=== PATIENT | female | born 1940 | race Caucasian/White ===

== ENCOUNTER 2016-12-15 10:33 | Outpatient (CLI) | payer MEDICARE, OTHER ==
[2015-12-11 08:12] VITALS: O2SAT 95
== END 2016-12-15 10:34 | disposition home or self-care (01) | DRG 561 ==
LOC: CONVCARE 10:33
PROVIDERS: ATTEND Orthopaedic Surgery
DX: Z47.1 Aftercare following joint replacement surgery (principal); M54.31 Sciatica, right side; Z96.653 Presence of artificial knee joint, bilateral
CPT/HCPCS: 73562

== ENCOUNTER 2017-02-26 07:45 | Day surgery (SDC) | payer MEDICARE, OTHER ==
[2017-02-26] MEDS ORDERED: LIDOCAINE HCL 2% MPF SOL ONE ×2 (08:19→08:58)
[2017-02-26] MEDS ORDERED: FENTANYL 100MCG/2ML SOL ONE (08:56)
[2017-02-26] MEDS ORDERED: MIDAZOLAM 2 MG/2 ML SOL ONE (08:56)
[2017-02-26] MEDS ORDERED: PROPOFOL 500 MG/50 ML EMU IV ONE (09:00)
[2017-02-26] MEDS: BUPIVACAINE HCL 0.5% MPF 10 ML SOL ONE ×3 (09:26→09:40)
[2017-02-26] MEDS ORDERED: BETAMETHASONE 6 MG/ML SUS IM ONE (09:26)
[2017-02-26] MEDS ORDERED: LIDOCAINE HCL 1% MPF SOL ONE (09:44)
[2017-02-26 11:18] VITALS: BP 145/55; PULSE 60; RESP 20; TEMP 97.3; O2SAT 96
== END 2017-02-26 11:55 | disposition home or self-care (01) | DRG 74 ==
LOC: SURG 07:45
PROVIDERS: ATTEND Orthopaedic Surgery
DX: G56.03 Carpal tunnel syndrome, bilateral upper limbs (principal); E11.40 Type 2 diabetes mellitus with diabetic neuropathy, unspecified
CPT/HCPCS: 82962; J0702; J2250; J3010; A6402; J2001; J2704

== ENCOUNTER 2017-12-14 11:18 | Outpatient (CLI) | payer MEDICARE, OTHER ==
[2017-02-26 11:18] VITALS: O2SAT 96
== END 2017-12-14 11:19 | disposition home or self-care (01) | DRG 561 ==
LOC: CONVCARE 11:18
PROVIDERS: ATTEND Orthopaedic Surgery
DX: Z47.1 Aftercare following joint replacement surgery (principal); Z96.653 Presence of artificial knee joint, bilateral
CPT/HCPCS: 73562

== ENCOUNTER 2019-01-05 15:52 | Observation (INO) | payer MEDICARE, BC ==
[2019-01-05] MEDS ORDERED: DEXTROSE/SALINE 0.9% 1,000 ML IV ONE (15:58)
[2019-01-05] MEDS ORDERED: SODIUM CHLORIDE 0.9% FLUSH 10 ML SOL IV PRN (16:05)
[2019-01-05 16:15] LABS: BASOPHILS % (AUTO) 1 % (0-3); EOSINOPHILS % (AUTO) 6 % (0-9); HEMATOCRIT 40 % (35-47); LYMPHOCYTES % (AUTO) 35.5 % (10-50); MEAN CORPUSCULAR HEMOGLOBIN 29.3 pg (27.0-32.0); MEAN CORPUSCULAR HGB CONC 32.4 gm/dl (32.0-36.0); MEAN CORPUSCULAR VOLUME 90 fL (81-99); MONOCYTES % (AUTO) 7.1 % (0-12); NEUTROPHILS % (AUTO) 50.6 % (37-80)
[2019-01-05 16:27] LABS: INR 1.02 (0.86-1.12)
[2019-01-05 16:37] LABS: ALBUMIN 3.6 gm/dl (3.4-5.0); ALKALINE PHOSPHATASE 78 IU/L (46-116); ALT 18 IU/L (14-63); AST 15 IU/L (15-37); BILIRUBIN,TOTAL 0.3 mg/dl (0.2-1.0); BLOOD UREA NITROGEN 24 mg/dl (7-18); CALCIUM 8.8 mg/dl (8.5-10.1); CARBON DIOXIDE 26.6 mEq/L (21-32); CHLORIDE 104 mMol/L (98-107); CREATININE 1.22 mg/dl (0.60-1.00); GLUCOSE 92 mg/dl (74-106); POTASSIUM 4.9 mMol/L (3.5-5.1); SODIUM 141 mMol/L (136-145); TOTAL PROTEIN 7.1 gm/dl (6.4-8.2); TROP I < 0.017 ng/ml (0.000-0.056)
[2019-01-05 17:51] LABS: APPEARANCE,URINE Clear; BILIRUBIN,URINE NEGATIVE (NEGATIVE); COLOR,URINE Yellow; GLUCOSE, URINE (UA) NEGATIVE (NEGATIVE); KETONES,URINE NEGATIVE (NEGATIVE); LEUKOCYTE ESTERASE ,URINE TRACE (NEGATIVE); NITRATE,URINE NEGATIVE (NEGATIVE); OCCULT BLOOD,URINE NEGATIVE (NEG-TRACE); UROBILINOGEN,URINE 0.2 (0.2-1.0 EU)
[2019-01-05] MEDS ORDERED: SODIUM CHLORIDE 0.9% 1000ML 1,000 ML IV ONE (17:53)
[2019-01-05] MEDS ORDERED: ACETAMINOPHEN 325 MG PO PRN (17:54)
[2019-01-05 18:01] LABS: BACTERIA RARE (< 1+); CRYSTALS NEGATIVE (0-3 AVE/HPF); EPITHELIAL CELLS 0-1 (SQUAMOUS); RBC,URINE NEG (0-3AV/HPF)
[2019-01-05] MEDS ORDERED: PATIENT EDUCATION 1 MISC ONE (18:46)
[2019-01-05] MEDS ORDERED: ATORVASTATIN 10 MG TAB PO SCH (21:00)
[2019-01-05] MEDS: METOPROLOL TARTRATE 50 MG TAB PO SCH (21:12)
[2019-01-05] MEDS: METFORMIN HYDROCHLORIDE 500 MG TAB PO SCH (21:26)
[2019-01-06 07:40] VITALS: BP 160/72; PULSE 72; RESP 20; TEMP 97.9; O2SAT 93
[2019-01-06] MEDS: METOPROLOL TARTRATE 50 MG TAB PO SCH (08:22)
[2019-01-06] MEDS: METFORMIN HYDROCHLORIDE 500 MG TAB PO SCH (08:22)
[2019-01-06] MEDS ORDERED: GLIMEPIRIDE 2 MG TAB PO SCH (09:00)
[2019-01-06] MEDS ORDERED: ASPIRIN EC 81 MG PO SCH (09:00)
[2019-01-06] MEDS ORDERED: OMEPRAZOLE 40 MG ECC PO SCH (09:00)
[2019-01-06] MEDS ORDERED: PANTOPRAZOLE SODIUM 40 MG ECT PO SCH (09:00)
[2019-01-06] MEDS ORDERED: INFLUENZA HIGH DOSE VACCINE 0.5 ML SUS IM ONE (10:03)
[2019-01-06] MEDS ORDERED: [UNRECOGNIZED DRUG - OTHER] ID ONE (10:51)
== END 2019-01-06 11:25 | disposition home or self-care (01) | DRG 640 ==
LOC: ED 15:52 → ACUTE CARE 17:34
PROVIDERS: ADMIT Family Medicine; ATTEND Family Medicine
DX: E16.2 Hypoglycemia, unspecified (principal); I63.9 Cerebral infarction, unspecified; R47.01 Aphasia; E11.9 Type 2 diabetes mellitus without complications; R06.00 Dyspnea, unspecified
CPT/HCPCS: 70450; 71045; 80053; 81001; 82962; 83880; 84484; 85025; 85610; 85730; 87088; 90662; 93005; 93012; 96365; 99291; A9270-GY; G0008

== ENCOUNTER 2019-01-07 13:50 | Emergency (ER) | payer MEDICARE, BC ==
[2019-01-07] MEDS ORDERED: SODIUM CHLORIDE 0.9% 1000ML 1,000 ML IV ONE (13:59)
[2019-01-07 14:05] VITALS: TEMP 97.9
[2019-01-07 14:07] LABS: BASOPHILS % (AUTO) 1 % (0-3); EOSINOPHILS % (AUTO) 3 % (0-9); HEMATOCRIT 41 % (35-47); HEMOGLOBIN 13.6 gm/dl (12.0-15.5); LYMPHOCYTES % (AUTO) 27.9 % (10-50); MEAN CORPUSCULAR HEMOGLOBIN 29.9 pg (27.0-32.0); MEAN CORPUSCULAR HGB CONC 33.5 gm/dl (32.0-36.0); MEAN CORPUSCULAR VOLUME 89 fL (81-99); MONOCYTES % (AUTO) 6.2 % (0-12); NEUTROPHILS % (AUTO) 61.8 % (37-80)
[2019-01-07 14:16] LABS: INR 1.02 (0.86-1.12)
[2019-01-07 14:20] LABS: ALBUMIN 3.8 gm/dl (3.4-5.0); ALKALINE PHOSPHATASE 81 IU/L (46-116); ALT 18 IU/L (14-63); AST 23 IU/L (15-37); BILIRUBIN,TOTAL 0.4 mg/dl (0.2-1.0); BLOOD UREA NITROGEN 19 mg/dl (7-18); CALCIUM 9.3 mg/dl (8.5-10.1); CHLORIDE 103 mMol/L (98-107); GLUCOSE 154 mg/dl (74-106); POTASSIUM 4.6 mMol/L (3.5-5.1); SODIUM 140 mMol/L (136-145); TOTAL PROTEIN 7.6 gm/dl (6.4-8.2); TROP I < 0.017 ng/ml (0.000-0.056)
[2019-01-07] MEDS ORDERED: CLOPIDOGREL 75 MG TAB PO ONE (14:24)
[2019-01-07 14:46] LABS: APPEARANCE,URINE Clear; BILIRUBIN,URINE NEGATIVE (NEGATIVE); COLOR,URINE Yellow; GLUCOSE, URINE (UA) NEGATIVE (NEGATIVE); KETONES,URINE NEGATIVE (NEGATIVE); LEUKOCYTE ESTERASE ,URINE TRACE (NEGATIVE); NITRATE,URINE NEGATIVE (NEGATIVE); OCCULT BLOOD,URINE NEGATIVE (NEG-TRACE); UROBILINOGEN,URINE 0.2 (0.2-1.0 EU)
[2019-01-07 15:01] LABS: BACTERIA NEGATIVE (< 1+); CRYSTALS NEGATIVE (0-3 AVE/HPF); RBC,URINE NEGATIVE (0-3AV/HPF)
[2019-01-07] MEDS ORDERED: SODIUM CHLORIDE 0.9% FLUSH 10 ML SOL IV PRN (15:15)
[2019-01-07 16:15] VITALS: RESP 16
[2019-01-07 17:13] VITALS: BP 162/84; PULSE 68; O2SAT 94
== END 2019-01-07 17:10 | disposition short-term general hospital (02) | DRG 92 ==
LOC: ED 13:50
DX: R47.01 Aphasia (principal); G45.9 Transient cerebral ischemic attack, unspecified; E11.9 Type 2 diabetes mellitus without complications
CPT/HCPCS: 70450; 70544; 70551; 71045; 80053; 81001; 82962; 83880; 84484; 85025; 85610; 85730; 87088; 93005; 96365; 99291; 99292